=== PATIENT | male | born 1990 | race Caucasian/White ===

== ENCOUNTER 2019-06-25 10:46 | Observation (INO) | payer BC ==
[2019-06-25 12:40] VITALS: BMI 26.9
[2019-06-25] MEDS ORDERED: NA CHLORIDE 0.9% 1,000 ML IV SCH (15:00)
[2019-06-25] MEDS ORDERED: PROPOFOL 200 MG/20 ML VIAL IV ONE (16:16)
[2019-06-25] MEDS ORDERED: FENTANYL CITR 100 MCG/2 ML ONE (16:16)
[2019-06-25] MEDS ORDERED: MIDAZOLAM HCL 2 MG/2 ML INJ ONE (16:16)
[2019-06-25] MEDS ORDERED: GLYCOPYRROLATE 0.2 MG/ML SYR ONE (16:17)
[2019-06-25] MEDS ORDERED: NEOSTIGMINE 1 MG/ML -10 ML VIAL ONE (16:17)
[2019-06-25] MEDS ORDERED: ONDANSETRON 4 MG/2 ML VIAL ONE (16:17)
[2019-06-25] MEDS ORDERED: KETOROLAC 30 MG/ML INJ ONE (16:32)
[2019-06-25] MEDS ORDERED: ROCURONIUM 50 MG/5 ML VIAL IV ONE (16:32)
[2019-06-25] MEDS ORDERED: LIDOCAINE 1% MPF 5 ML VIAL ONE (16:32)
[2019-06-25] MEDS ORDERED: Ringers Lactate 1,000 ML IV ONE (16:36)
[2019-06-25] MEDS ORDERED: CEFOXITIN/SWI 1gm 1 GM/10 ML SYR ONE (17:14)
--- NOTE | 2019-06-25 17:37 | P.BOP ---
Preoperative diagnosis: acute appendicitis Postoperative diagnosis: same Primary procedure: Laparoscopic appendectomy Estimated blood loss: <10cc Specimen: jodi Findings: as above Anesthesia: General Complications: None Transferred to: Recovery Room Condition: Good
[2019-06-25] MEDS ORDERED: MORPHINE 2 MG/ML SYR IV PRN (17:38)
[2019-06-25] MEDS ORDERED: ONDANSETRON 4 MG/2 ML VIAL IV PRN (17:38)
[2019-06-25] MEDS ORDERED: HYDROMORPHONE HCL 1 MG/ML INJ ONE (18:00)
[2019-06-25] MEDS: NA CHLORIDE 0.9% 1,000 ML IV SCH (18:00)
[2019-06-25] MEDS ORDERED: CEFOXITIN/SWI 1gm 1 GM/10 ML SYR IVP SCH (18:00)
[2019-06-25] MEDS ORDERED: NA CHLORIDE 0.9% 1,000 ML ONE (18:16)
[2019-06-25 18:20] VITALS: O2SAT 98
[2019-06-25] MEDS: HYDROCODONE/APAP 5/325 MG TAB PO PRN (21:56)
[2019-06-26] MEDS: CEFOXITIN/SWI 1gm 1 GM/10 ML SYR IVP SCH ×2 (00:42→06:05)
--- NOTE | 2019-06-26 02:05 | HP ---
Date of Admission: 06/25/2019 Diagnoses: Acute appendicitis. History Of Present Illness: This is the case of a 28-year-old patient, transferred from [facility] due to persistent intractable right lower quadrant abdominal pain. Patient was diagnosed with a large appendix and acute appendicitis. Dr. Fischer, his primary doctor called me today for a transfer fo r appendectomy. [facility] was kind enough to allow me to transfer this patient to this institution. On ad mission patient stated he is having this pain for the last 24 hours consistent with nausea. He does not remember any pain like this before. He denies any dysuria, hematuria, hematochezia, or melena. He denies any recent traveling out of the country. He denies any family members sick at home. Review of Systems: 10-points otherwise unremarkable. Medical History: None. Allergies: NONE. Surgeries: None. He does smoke. He does not drink alcohol. Family History: Noncontributory. Physical Examination: General: The patient is awake and alert. HEENT: Pupils are equal and reactive, anicteric. Neck: Supple. Chest: Clear. Heart: S1, S2. Abdomen: Soft and depressible. There is right lower quadrant guarding and rebound. Psoas signs and Rovsing sign positive. CAT scan from [facility] shows distended appendix. Blood work reviewed from [place]. Assessment: Acute appendicitis, right lower quadrant abdominal pain. Procedure: Laparoscopic possible open appendectomy with benefits, alternatives, and risks including, but not limited to infection, bleeding, damage to adjacent structures, anesthesia complication, nega tive appendix, negative exploration, [place], and even . He also understands this may not relieve an y symptoms. He might need more than one surgical intervention. He understood, signed a consent. On his way to this hospital, patient ate some doughnuts that he got and so we are waiting until anesthe zonia believe it is safe to do surgery and we will proceed accordingly. CRICKET/HUGO Voice ID: [id number]
[2019-06-26] MEDS: NA CHLORIDE 0.9% 1,000 ML IV SCH (03:08)
--- NOTE | 2019-06-26 04:11 | OP ---
Date of Procedure: 06/25/2019 Surgeon: Marcus Eli MD Lime Supervisor: None. Preoperative Diagnosis: Acute appendicitis. Postoperative Diagnosis: Acute appendicitis. Procedure: Laparoscopic appendectomy. Anesthesia: General plus local. Estimated Blood Loss: Less than 10 mL. Specimen: Appendix. Finding: Acute appendicitis. Indications: This is a case of a 28-year-old patient, diagnosed with acute appendicitis. The benefi ts, alternatives, and risks of laparoscopic, possible open appendectomy, fully explained which includ e, but are not limited to infection, bleeding, damage to adjacent structures, anesthesias complicatio n, [place], and even . He also understands this may not relieve any symptoms. He might need more th an one surgical intervention, he understood and signed a consent. Description Of Procedure: The patient was brought emergently to the operating room, placed in supine position. Anesthesia was done without complication. Abdominal area was prepped and draped in the u sual sterile fashion. Marcaine 0.5% was injected for local anesthetic, followed by sharp incision of the skin in the infraumbilical region. Incision was carried down to fascia, which was opened under direct vision. Peritoneum was encountered, opened under direct vision. Vicryl #1 placed inside of t he fascia. Emilia trocar was carefully introduced. No bleeding was obtained. I placed 2 more troca rs, 5 mm each one of them, in the suprapubic and left lower quadrant under direct visualization. Thi s allowed me to take a look at the right lower quadrant and indeed, we noticed that inflamed and eryt hematous appendix, mid appendix and distal. The base of the appendix seems to be spared, so we creat ed a window in the base of the appendix, transected that with an Endo DUSTIN 45 mm 3.5, and the mesoappe ndix with an Endo DUSTIN 45 mm 2.5; and then further hemostasis was obtained with the help of hemoclips. Appendix was removed from abdominal cavity using EndoCatch through the umbilical incision. The are a was irrigated and inspected once again. No bowel leak. No bleeding. At that moment, I proceeded to remove the trocars under direct vision. Deflated the pneumoperitoneum. Closed the fascia with #1 Vicryl. Irrigated subcu tissue, closed that with 3-0 chromic and skin with naeem. Sponge count a nd instrument counts were correct. Patient tolerated the procedure well. Patient was sent to recove ry in stable condition. CRICKET/HUGO Voice ID: [id number] Report ID: [id number]
[2019-06-26 05:54] LABS: Absolute Lymphocytes (CBC) 1.6 K/uL (0.7-4.9); Basophils % 0.6 % (0-1.3); Hematocrit 35.6 % (39.6-49.0); Lymphocytes % 20.7 % (15.3-44.8); MPV 10.1 fL (7.6-11.3); RBC Red Blood Cell Count 4.05 M/uL (4.33-5.43)
[2019-06-26 06:00] LABS: BUN Blood Urea Nitrogen 7 mg/dL (7-18); Bicarbonate 28 mmol/L (21-32); Glucose Level 85 mg/dL (74-106); Potassium 3.8 mmol/L (3.5-5.1); Sodium Level 142 mmol/L (136-145)
[2019-06-26] MEDS: HYDROCODONE/APAP 5/325 MG TAB PO PRN (07:52)
--- NOTE | 2019-06-26 09:28 | P.DS ---
Admission Date: 06/25/19 Discharge Date: 06/26/19 Disposition: ROUTINE DISCHARGE Discharge Condition: GOOD Hospital Course: unremarkable Vital Signs/Physical Exam: Temp Pulse Resp BP Pulse Ox 97.7 F 58 16 125/69 95 06/26/19 04:00 06/26/19 04:00 06/26/19 07:52 06/26/19 04:00 06/26/19 07:52 General: Alert, In no apparent distress, Oriented x3, Cooperative HEENT: PERRLA, EOMI Neck: Supple Respiratory: Normal air movement Cardiovascular: Normal pulses Gastrointestinal: Soft and benign Musculoskeletal: No erythema, No tenderness, No warmth Integumentary: No rashes, No breakdown, No erythema, No warmth, No cyanosis Neurological: Normal speech Laboratory Data at Discharge: WBC 7.5 K/uL (4.3-10.9) 06/26/19 05:19 Hgb 12.2 g/dL (13.6-17.9) L 06/26/19 05:19 Hct 35.6 % (39.6-49.0) L 06/26/19 05:19 Plt Count 185 K/uL (152-406) 06/26/19 05:19 Sodium 142 mmol/L (136-145) 06/26/19 05:19 Potassium 3.8 mmol/L (3.5-5.1) 06/26/19 05:19 BUN 7 mg/dL (7-18) 06/26/19 05:19 Creatinine 0.93 mg/dL (0.55-1.3) 06/26/19 05:19 Glucose 85 mg/dL (74-106) 06/26/19 05:19 Home Medications: Codeine/APAP [Tylenol W/Codeine #3 tab] 1 tab PO Q4HP PRN #30 tab 06/26/19 Sulfamethoxazole/Trimethoprim [Bactrim Ds Tablet] 1 each PO BID #12 tablet 06/26 New Medications: Codeine/APAP [Tylenol W/Codeine #3 tab] 1 tab PO Q4HP PRN #30 tab PRN Reason: Pain Sulfamethoxazole/Trimethoprim [Bactrim Ds Tablet] 1 each PO BID #12 tablet Patient Discharge Instructions: Keep area dry for 24h then may remove outer dressind and shower. Apply triple abx ointment and band aid after that. Diet: AHA Activity: No lifting more than 10 lbs Followup: Marcus Eli MD [ACTIVE - CAN ADMIT] - 1 Week
[2019-06-26 10:43] VITALS: BP 119/71; TEMP 98.3
== END 2019-06-26 11:07 | disposition home or self-care (01) ==
LOC: 2ND 12:29 → INTOOBSV 12:29
PROVIDERS: ADMIT Surgery; ATTEND Surgery
PROC: 0DTJ4ZZ Resection of Appendix, Percutaneous Endoscopic Approach (ICD-10-PCS; principal; 2019-06-25 17:00)
DX: K35.80 Unspecified acute appendicitis (principal)
CPT/HCPCS: 85025; 80048; 36415; 88304; 44970; J7030 ×2; J2704; J2710; J2250; J3010; J2270; J1170; G0378 ×3; J7120; J2405; G0379

== ENCOUNTER 2019-08-19 06:32 | Emergency (ER) | payer BC ==
[2019-08-19] MEDS ORDERED: IBUPROFEN 200 MG TAB PO ONE (06:42)
[2019-08-19] MEDS ORDERED: IBUPROFEN 400 MG TAB ONE (06:42)
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
[2019-08-19 09:30] VITALS: O2SAT 100
[2019-08-19 09:31] VITALS: BP 139/86; TEMP 98
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
== END 2019-08-19 08:30 | disposition home or self-care (01) ==
LOC: ER 06:32
DX: S02.5XXA Fracture of tooth (traumatic), initial encounter for closed fracture (principal); M25.512 Pain in left shoulder; V22.4XXA Motorcycle driver injured in collision with two- or three-wheeled motor vehicle in traffic accident, initial encounter
CPT/HCPCS: 70450; 72125; 99284